=== PATIENT | male | born 1995 | race Caucasian/White ===

== ENCOUNTER 2022-04-04 23:47 | Emergency (ER) | payer OTHER ==
[~2022-04-04 23:47] MED LIST: INDOCIN 50 MG C50 MG PO
[2022-04-05 02:19] LABS: HEMOGLOBIN 16.1 gm/dl (14.0-17.5); RED BLOOD COUNT 5.46 M/UL (4.20-5.50)
[2022-04-05 02:30] LABS: BUN/CREATININE RATIO 15 (0-10)
[2022-04-05] MEDS ORDERED: BENTYL 20MG TAB20 MG PO (02:56)
[2022-04-05] MEDS ORDERED: PROTONIX20 MG PO (02:56)
[2022-04-05] MEDS ORDERED: ZOFRAN ODT 4 MG4 MG PO (02:56)
== END 2022-04-05 03:08 | disposition home or self-care (01) ==
LOC: ER1 23:47
PROVIDERS: Physician Assistant
DX: R10.12 Left upper quadrant pain (principal)
CPT/HCPCS: 80053; 82150; 83690; 85025; 96374; 96375; 99284; J1885; J2405